=== PATIENT | female | born 1970 | race Caucasian/White ===

== ENCOUNTER 2016-07-08 13:01 | Outpatient (CLI) | payer BC, OTHER | END 2016-07-08 13:02 | disposition home or self-care (01) | DX: G47.30 Sleep apnea, unspecified (principal); G47.8 Other sleep disorders; G47.10 Hypersomnia, unspecified ==

== ENCOUNTER 2016-08-28 08:38 | Outpatient (CLI) | payer BC | END 2016-08-28 08:39 | disposition home or self-care (01) | DX: G47.33 Obstructive sleep apnea (adult) (pediatric) (principal) ==

== ENCOUNTER 2016-11-24 14:12 | Outpatient (CLI) | payer BC | END 2016-11-24 14:13 | disposition home or self-care (01) | LOC: SC 14:12 | PROVIDERS: ATTEND Nurse Practitioner Family | DX: G47.33 Obstructive sleep apnea (adult) (pediatric) (principal) | CPT/HCPCS: 99212; 99214 ==

== ENCOUNTER 2016-12-18 13:30 | Outpatient (CLI) | payer BC | END 2016-12-18 13:31 | disposition home or self-care (01) | LOC: SC 13:30 | PROVIDERS: ATTEND Nurse Practitioner Family | DX: G47.33 Obstructive sleep apnea (adult) (pediatric) (principal) | CPT/HCPCS: 99212; 99214 ==